=== PATIENT | male | born 1955 | race Caucasian/White ===

== ENCOUNTER 2021-07-03 08:31 | Day surgery (SDC) | payer OTHER ==
[2021-07-03 08:25] LABS: Absolute Lymphocytes (CBC) 1.5 K/uL (0.7-4.9); Hematocrit 43.2 % (39.6-49.0); Lymphocytes % 21.5 % (15.3-44.8); MPV 8.3 fL (7.6-11.3); RBC Red Blood Cell Count 4.68 M/uL (4.33-5.43)
[2021-07-03 08:27] LABS: Urine Appearance CLEAR (Clear); Urine Bilirubin NEGATIVE (Negative); Urine Blood NEGATIVE (Negative); Urine Color YELLOW (Yellow); Urine Glucose NEGATIVE (Negative); Urine Protein NEGATIVE (Negative); Urine Urobilinogen 0.2 mg/dL (0.2-1.0)
[2021-07-03 08:28] LABS: Urine Microscopic Reflex NO UMIC
[2021-07-03] MEDS ORDERED: CEFAZOLIN/NS 1gm 1 GM/50 ML BAG ONE (08:48)
[2021-07-03] MEDS ORDERED: Ringers Lactate 1,000 ML IV ONE ×2 (08:48→10:25)
[2021-07-03] MEDS ORDERED: MIDAZOLAM HCL 2 MG/2 ML INJ ONE (09:03)
[2021-07-03] MEDS ORDERED: FENTANYL CITR 100 MCG/2 ML ONE ×2 (09:09→09:41)
[2021-07-03] MEDS ORDERED: LIDOCAINE 2% MPF 5 ML VIAL ONE (09:10)
[2021-07-03] MEDS ORDERED: propofoL 200 MG/20 ML VIAL IV ONE (09:10)
--- NOTE | 2021-07-03 09:14 | RAD REPORT ---
EXAM DESCRIPTION: Mika Pa And Lat (2 Views)07/03/2021 8:29 am CLINICAL HISTORY: Preop COMPARISON: None FINDINGS: Calcified hilar and calcified lung granulomas. The lungs appear clear of acute infiltrate. The heart is normal size IMPRESSION: No acute abnormalities displayed
[2021-07-03] MEDS ORDERED: ONDANSETRON 4 MG/2 ML VIAL ONE (09:40)
[2021-07-03] MEDS ORDERED: MORPHINE 10 MG/ML VIAL ONE (09:55)
[2021-07-03] MEDS ORDERED: KETOROLAC 30 MG/ML INJ ONE (09:56)
[2021-07-03] MEDS ORDERED: Mastisol Adhesive Liq ONE (10:36)
[2021-07-03] MEDS: HYDROMORPHONE HCL 1 MG/ML INJ ONE ×2 (11:15→11:28)
--- NOTE | 2021-07-03 11:15 | EKG ---
Test Date: 2021-07-03 Test Time: 08:01:26 Locate Technician: SERENA MEASUREMENT RESULTS: Intervals: Rate: 57 TX: 138 QRSD: 92 QT: 386 QTc: 375 [place]: P: 57 TX: 138 QRS: 28 T: 108 INTERPRETIVE STATEMENTS: Sinus bradycardia with sinus arrhythmia Nonspecific ST and T wave abnormality Abnormal ECG Compared to ECG 12/17/1996 11:00:00 ST (T wave) deviation now present T-wave abnormality no longer present Electronically Signed On 07-03-21 11:13:58 FREEDOM OF INFORMATION OFFICER by Torsten Schuler
--- NOTE | 2021-07-03 11:29 | OP ---
Surgeon: Sebas Wilkins MD Supervisor [employer]: Cordell. Preoperative Diagnosis: Hypomastia. Postoperative Diagnosis: Hypomastia. Procedure Performed: Liposuction with fat transfer to the breast. Anesthesia: General. Description Of Procedure: After satisfactory induction of general anesthesia, the abdomen and breast s were prepped with DuraPrep, dry sterile drapes applied in the usual manner. An incision was made o andres the anterior iliac spine regions bilaterally, and then, infused. 1000 cc was infused in the right flank and right abdomen, 1000 cc in the left flank and left abdomen. Then, the same inc ision was used to harvest. A 4 mm cannula was used to harvest fat. 800 cc was removed from each lawrence f of the abdomen and flanks. These wounds were then closed with 4-0 PDS, tincture of benzoin, and [facility] sherlyn-Strips. The fat was allowed to gravitate and then was transferred to injection syringes. 1 cc a liquots were injected. Incision was made in the right breast and inframammary fold laterally, left b reast mirror image. Fat was introduced, 300 cc placed on each side. The patient was sat up, looked for symmetry, on the right side to fill up a portion medially and 150 in the le ft side to fill it cephalad as well as medially. Total amount infused was 350 right, 450 left. Then , the wounds were closed with 4-0 PDS. Abdominal binder was placed as well as fluffs and Marcio wrap on the breast. The patient tolerated the procedure well an d returned to Recovery. KELLY/KETURAH Voice ID: [id number] Report ID: [id number]
[2021-07-03] MEDS ORDERED: HYDROMORPHONE HCL 1 MG/ML INJ ONE (11:33)
[2021-07-03 12:23] VITALS: TEMP 97.6
[2021-07-03] MEDS ORDERED: CODEINE 30MG/APAP 300MG TAB PO ONE (12:30)
[2021-07-03] MEDS ORDERED: CODEINE 30MG/APAP 300MG TAB ONE (12:30)
--- NOTE | 2021-07-03 12:59 | HP ---
Date of Admission: 07/03/2021 History Of Present Illness: A 66-year-old white male who has been on hormone replacement and was sher ared by Psychiatry. Hormone replacement wants breast augmentation with fat transfer. No medical problems. gallbladder as well as laparotomy. Social History: The patient does not smoke, and does not drink. Allergies: NO ALLERGIES. Medications: No medications. Family History: He has a maternal grandmother with breast cancer. Physical Examination: Vital Signs: 5 feet 10 inches, 240 pounds. Chest: He has about size B breasts. He has a scar in the vertical midline infraumbilically from a p revious laparotomy. Assessment: Hypomastia. Plan: Liposuction with fat transfer to the breasts. KELLY/KETURAH Voice ID: [id number]
[2021-07-03 13:14] VITALS: BP 142/66; O2SAT 99
== END 2021-07-03 13:12 | disposition home or self-care (01) ==
LOC: OR 08:31
PROVIDERS: ATTEND Specialist
PROC: 0H0V07Z Alteration of Bilateral Breast with Autologous Tissue Substitute, Open Approach (ICD-10-PCS; principal; 2021-07-03 10:30)
DX: N64.82 Hypoplasia of breast (principal)
CPT/HCPCS: 93005; 85025; 36415; 81003; 71046; 15771; 15772 ×15; J2704; J2250; J3010 ×2; J1170 ×2; J0690; J7120 ×2; J2405